=== PATIENT | male | born 1955 | race Caucasian/White ===

== ENCOUNTER 2019-11-09 13:39 | Emergency (ER) | payer MEDICARE, BC ==
--- NOTE | 2019-11-09 14:53 | EDM.PDOC ---
ED HPI GENERAL MEDICAL PROBLEM - General Chief Complaint: Respiratory Problem Stated Complaint: MEDICAL VIA ESSENTIA Time Seen by Provider: 11/09/19 14:15 Source of Information: Reports: Patient, Family, Provider History Limitations: Reports: No Limitations - History of Present Illness INITIAL COMMENTS - FREE TEXT/NARRATIVE: 64-year-old male has been having some increased shortness of breath and shoulder pain for the past 48 to 72 hours. He went into the walk-in clinic to talk about this and was sent over to the emergency room. He has a chronic left diaphragmatic paralyzation, has had angiograms in the past which were negative but it has been over 5 years. No fevers or chills, no cough. He has chronic atrial fibrillation and is on warfarin. Onset: Unknown/Unsure Associated Symptoms: Reports: Shortness of Breath. Denies: Chest Pain, Cough, Nausea/Vomiting, Weakness neck Pain Score (Numeric/FACES): 3 - Related Data Allergies Allergy/AdvReac Type Severity Reaction Status Date / Time nifedipine [From Procardia] Allergy Swelling Verified 11/09/19 14:00 Home Meds: Home Meds Albuterol Sulfate [Albuterol Sulfate Hfa] 1 - 2 puff INH Q4H PRN 11/09/19 [ History] Celecoxib [CeleBREX] 200 mg PO DAILY 11/09/19 [History] Cetirizine HCl [Zyrtec] 1 tab PO DAILY 11/09/19 [History] Cholecalciferol (Vitamin D3) [Vitamin D3] 2,000 unit PO DAILY 11/09/19 [History] Citalopram Hydrobromide [Celexa] 40 mg PO DAILY 11/09/19 [History] Metoprolol Succinate [Toprol XL] 25 mg PO DAILY 11/09/19 [History] Multivitamin [Multi-Vitamin Daily] 1 tab PO DAILY 11/09/19 [History] Warfarin Sodium [Coumadin] 5 mg PO ASDIRECTED 11/09/19 [History] Warfarin Sodium [Coumadin] 7.5 mg PO ASDIRECTED 11/09/19 [History] hydroCHLOROthiazide [Hydrochlorothiazide] 25 mg PO DAILY 11/09/19 [History] lisinopriL [Lisinopril] 40 mg PO DAILY 11/09/19 [History] oxyCODONE 15 mg PO Q6H 11/09/19 [History] traZODone HCl [Trazodone HCl] 100 mg PO BEDTIME 11/09/19 [History] Past Medical History Cardiovascular History: Reports: Hypertension, [place] Respiratory History: Reports: Other (See Below) Other Respiratory History: paralized l diaphram Gastrointestinal History: Reports: Other (See Below) Other Gastrointestinal History: colotis Musculoskeletal History: Reports: Back Pain, Chronic Neurological History: Reports: Concussion Psychiatric History: Reports: Addiction, Depression, Other (See Below) Other Psychiatric History: past ETOH addiction. Quit 2001 Hematologic History: Reports: Anemia, Other (See Below) Other Hematologic History: iron infusions - Infectious Disease History Infectious Disease History: Reports: Chicken Pox, Measles, Mumps - Past Surgical History GI Surgical History: Reports: Appendectomy, Colonoscopy Musculoskeletal Surgical History: Reports: Hip Replacement Social & Family History - Tobacco Use Smoking Status *Q: Former Smoker Years of Tobacco use: 25 Packs/Tins Daily: 2 Used Tobacco, but Quit: Yes Month/Year Tobacco Last Used: March 1980 - Caffeine Use Caffeine Use: Reports: Soda - Alcohol Use Days Per Week of Alcohol Use: 0 - Recreational Drug Use Recreational Drug Use: No ED ROS GENERAL - Review of Systems Review Of Systems: See Below Constitutional: Reports: Malaise. Denies: Fever, Chills HEENT: Reports: No Symptoms Respiratory: Reports: Shortness of Breath. Denies: Wheezing Cardiovascular: Denies: Chest Pain GI/Abdominal: Reports: Nausea. Denies: Vomiting Musculoskeletal: Reports: Shoulder Pain, Back Pain Skin: Reports: No Symptoms Neurological: Reports: Other (Chronic left hemidiaphragm paralyzed). Denies: Headache ED EXAM, GENERAL - Physical Exam Exam: See Below Exam Limited By: No Limitations General Appearance: Alert, No Apparent Distress Head: Atraumatic Respiratory/Chest: No Respiratory Distress, Rales (A few scattered basilar rales were heard, overall decreased breath sounds) Cardiovascular: Regular Rate, Rhythm GI/Abdominal: Soft, Non-Tender Extremities: Normal Inspection. No: Pedal Edema Neurological: Alert, Oriented, No Motor/Sensory Deficits Psychiatric: Normal Affect, Normal Mood Course - Vital Signs Last Recorded V/S: Last Vital Signs Temp 97 F 11/09/19 13:59 Pulse 70 11/09/19 13:59 Resp 15 11/09/19 13:59 BP 157/91 H 11/09/19 13:59 Pulse Ox 93 L 11/09/19 13:59 - Orders/Labs/Meds Labs: Laboratory Tests 11/09/19 11/09/19 Range/Units 14:48 14:48 WBC 11.5 H (4.5-11.0) K/uL RBC 4.25 L (4.30-5.90) M/uL Hgb 12.8 (12.0-15.0) g/dL Hct 40.7 (40.0-54.0) % MCV 96 (80-98) fL MCH 30 (27-31) pg MCHC 31 L (32-36) % Plt Count 218 (150-400) K/uL Neut % (Auto) 77 H (36-66) % Lymph % (Auto) 14 L (24-44) % [place] % (Auto) 7 H (2-6) % Eos % (Auto) 2 (2-4) % Baso % (Auto) 1 (0-1) % Sodium 139 L (140-148) mmol/L Potassium 3.9 (3.6-5.2) mmol/L Chloride 101 (100-108) mmol/L Carbon Dioxide 33 H (21-32) mmol/L Anion Gap 8.9 (5.0-14.0) mmol/L BUN 14 (7-18) mg/dL Creatinine 1.4 H (0.8-1.3) mg/dL Est Cr Clr Drug Dosing 56.97 mL/min Estimated GFR (MDRD) 51 L (>60) Glucose 119 H (74-106) mg/dL Calcium 8.3 L (8.5-10.1) mg/dL Total Bilirubin 0.5 (0.2-1.0) mg/dL AST 17 (15-37) U/L ALT 24 (12-78) U/L Alkaline Phosphatase 64 (46-116) U/L Troponin I < 0.017 (0.000-0.056) ng/mL Total Protein 6.6 (6.4-8.2) g/dL Albumin 3.1 L (3.4-5.0) g/dL Globulin 3.5 (2.3-3.5) g/dL Albumin/Globulin Ratio 0.9 L (1.2-2.2) - Re-Assessments/Exams Free Text/Narrative Re-Assessment/Exam: 11/09/19 15:54 A 2 view chest x-ray was done which showed likely cardiomegaly and left atrial dilatation but we have no previous x-rays to compare. CBC and CMP were obtained and were reassuring, troponin was 0. O2 saturations remained in the mid 90s without oxygen supplementation. Patient has a recheck with his regular provider in 2 days, a copy of the x-ray was given to the patient as well as copies of the labs. I think an echocardiogram would be informative but we have that unavailable today. He will return sooner if pain worsens or breathing becomes more difficult. Departure - Departure Time of Disposition: 16:11 Disposition: Home, Self-Care 01 Clinical Impression: Dyspnea Qualifiers: Dyspnea type: dyspnea on exertion Qualified Code(s): R06.09 - Other forms of dyspnea Thoracic back pain Qualifiers: Chronicity: chronic Back pain laterality: bilateral Qualified Code(s): M54.6 - Pain in thoracic spine - Discharge Information Instructions: Shortness of Breath, Adult, [id number] Referrals: PCP,None [Primary Care Provider] - Forms: ED Department Discharge Care Plan Goals: Continue your current medications, and extra metoprolol this evening would be worthwhile. Return anytime if worsening, otherwise recheck in 2 days as scheduled. Take your chest x-ray copy and labs with you to your recheck. An echocardiogram would be an important next evaluation, discussed this with your regular doctor. Sepsis Event Note - Evaluation Sepsis Screening Result: No Definite Risk - Focused Exam Vital Signs: Vital Signs Temp Pulse Resp BP Pulse Ox 11/09/19 13:59 97 F 70 15 157/91 H 93 L Date Exam was Performed: 11/09/19 Time Exam was Performed: 18:55
--- NOTE | 2019-11-09 15:18 | CR ---
CHEST: 2 view CLINICAL HISTORY:Dyspnea COMPARISON:None FINDINGS: Heart is enlarged. There is a prominent left atrium. There are atherosclerotic changes in the aorta. Pulmonary vascularity is normal. No infiltrate, effusion or pneumothorax is seen Impression: Cardiomegaly with left atrial enlargement No acute cardiopulmonary process
== END 2019-11-09 16:10 | disposition home or self-care (01) ==
LOC: JP.ED 13:39
DX: R06.02 Shortness of breath (principal); M54.6 Pain in thoracic spine; I10 Essential (primary) hypertension; F32.9 Major depressive disorder, single episode, unspecified; Z87.891 Personal history of nicotine dependence; Z88.8 Allergy status to other drugs, medicaments and biological substances; Z79.899 Other long term (current) drug therapy
CPT/HCPCS: 36415; 71046; 71046-26; 80053; 84484; 85025; 99284; 99285-25

== ENCOUNTER 2022-02-12 17:03 | Emergency (ER) | payer MEDICARE, BC | END 2022-02-12 19:08 | disposition home or self-care (01) | LOC: JP.ED 17:03 | DX: R04.0 Epistaxis (principal); I48.91 Unspecified atrial fibrillation; I25.10 Atherosclerotic heart disease of native coronary artery without angina pectoris; I10 Essential (primary) hypertension; I25.2 Old myocardial infarction; Z87.891 Personal history of nicotine dependence; Z88.8 Allergy status to other drugs, medicaments and biological substances; Z79.01 Long term (current) use of anticoagulants; Z79.899 Other long term (current) drug therapy | CPT/HCPCS: 30901; 36415; 85018; 85610; 99281; 99283-25 ==

== ENCOUNTER 2022-02-15 15:21 | Emergency (ER) | payer MEDICARE, BC | END 2022-02-15 16:08 | disposition home or self-care (01) | LOC: JP.ED 15:21 | DX: R04.0 Epistaxis (principal); I25.10 Atherosclerotic heart disease of native coronary artery without angina pectoris; I25.2 Old myocardial infarction; I10 Essential (primary) hypertension; Z86.16 Personal history of COVID-19; Z90.49 Acquired absence of other specified parts of digestive tract; Z79.01 Long term (current) use of anticoagulants; Z79.899 Other long term (current) drug therapy; Z88.8 Allergy status to other drugs, medicaments and biological substances | CPT/HCPCS: 99281; 99283 ==

== ENCOUNTER 2024-10-20 10:32 | Emergency (ER) | payer MEDICARE, BC ==
[2024-10-20 11:38] LABS: BASOPHILS ABSOLUTE AUTO 0.05 K/uL (0.00-0.10); BASOPHILS PERCENT AUTO 0.7 % (0.1-1.3); EOSINOPHILS ABSOLUTE AUTO 0.11 K/uL (0.00-0.40); EOSINOPHILS PERCENT AUTO 1.5 % (0.0-5.4); HEMATOCRIT 34.2 % (38.4-49.7); HEMOGLOBIN 11.2 g/dL (12.9-16.9); IMMATURE GRAN PERCENT AUTO 0.3 % (0.0-0.7); LYMPHOCYTES ABSOLUTE AUTO 1.31 K/uL (0.8-3.3); LYMPHOCYTES PERCENT AUTO 18.3 % (11.4-47.7); MEAN CORPUSCULAR HEMOGLOBIN 31.4 pg (31.6-35.5); MEAN CORPUSCULAR HGB CONC 32.7 g/dL (31.6-35.5); MEAN CORPUSCULAR VOLUME 95.8 fL (81.4-99.0); MONOCYTES ABSOLUTE AUTO 0.67 K/uL (0.20-0.90); MONOCYTES PERCENT AUTO 9.4 % (3.3-12.6); NEUTROPHILS ABSOLUTE AUTO 4.98 K/uL (1.0-7.6); NEUTROPHILS PERCENT AUTO 69.8 % (40.0-78.1); PLATELET COUNT,PLT 133 K/uL (130-375); RED BLOOD CELL COUNT 3.57 M/uL (4.14-5.76); WHITE BLOOD CELL COUNT,WBC 7.1 K/uL (3.2-11.0)
[2024-10-20 11:54] LABS: IMMATURE GRAN ABSOLUTE AUTO 0.02 K/uL (0.00-0.23)
[2024-10-20 12:01] LABS: ANION GAP 6.3 mmol/L (5.0-14.0); CREATININE 1.1 mg/dL (0.8-1.3); EST CRCL DRUG DOSING (CG) 65.2 mL/min; POTASSIUM,K 4.3 mmol/L (3.6-5.2); TROPONIN I HIGH SENSITIVITY 6.2 pg/mL (<=60.3)
[2024-10-20 12:49] LABS: APPEARANCE,URINE CLEAR (CLEAR); BILIRUBIN,URINE NEGATIVE (NEGATIVE); COLOR,URINE YELLOW (YELLOW); GLUCOSE,URINE NEGATIVE (NEGATIVE); KETONES,URINE NEGATIVE (NEGATIVE); LEUKOCYTE ESTERASE,URINE MODERATE (NEGATIVE); NITRITE,URINE NEGATIVE (NEGATIVE); OCCULT BLOOD,URINE TRACE-INTACT (NEGATIVE); PH,URINE 5.5 (5.0-8.0); PROTEIN,URINE NEGATIVE (NEGATIVE)
[2024-10-20 12:56] LABS: EPITHELIAL CELLS,URINE NOT SEEN; RBC,URINE 0-5 (0-5)
[2024-10-20 12:57] LABS: BACTERIA,URINE FEW
== END 2024-10-20 13:26 | disposition home or self-care (01) ==
LOC: JP.ED 10:32
DX: N30.00 Acute cystitis without hematuria (principal); I10 Essential (primary) hypertension; I25.10 Atherosclerotic heart disease of native coronary artery without angina pectoris; Z86.16 Personal history of COVID-19; Z90.49 Acquired absence of other specified parts of digestive tract; Z87.891 Personal history of nicotine dependence; Z79.899 Other long term (current) drug therapy; Z88.8 Allergy status to other drugs, medicaments and biological substances
CPT/HCPCS: 36415; 71046; 71046-26; 80048; 81001; 84484; 85025; 87086; 87428-QW; 93005; 99285